=== PATIENT | male | born 1990 | race Caucasian/White ===

== ENCOUNTER 2017-12-19 03:01 | Emergency (ER) | payer OTHER ==
[~2017-12-19] VITALS: Ht 177.8 cm; Wt 113.0 kg
[~2017-12-19 03:01] MED LIST: FEXO-101; KETOROLAC TROMETHAMINE 30 MG/ML VIAL IV STA; ONDANSETRON INJ 2 MG/ML 2 ML VIAL IV STA; PARO1TAB27 PO; SODIUM CHLORIDE 0.9% 1000ML 1,000 ML IV STA
[2017-12-19 03:21] LABS: BASO % 0.2 %; BASO ABS # 0.02 K/uL (0-0.2); EOS % 0.7 %; EOS ABS # 0.07 K/uL (0-0.5); HEMATOCRIT 46.3 % (42-52); HEMOGLOBIN 16.3 g/dL (14.0-18.0); IG# 0.02 K/uL (0.00-0.02); LYMPH % 35.5 %; LYMPH ABS # 3.48 K/uL (1.2-3.4); MEAN CELL VOLUME 89.6 fL (80-100); MEAN CORPUSCULAR HEMOGLOBIN 31.5 pg (25-34); MEAN CORPUSCULAR HGB CONC 35.2 g/dl (32-36); MEAN PLATELET VOLUME 10.1 fL (7.4-10.4); MONO % 5.7 %; MONO ABS # 0.56 K/uL (0.11-0.59); NEUT % 57.7 %; NEUT ABS # 5.66 K/uL (1.4-6.5); PLATELET COUNT 228 K/uL (130-400); RED CELL DISTRIBUTION WIDTH CV 12.3 % (11.5-14.5); RED CELL DISTRIBUTION WIDTH SD 39.8 fL (36.4-46.3); WHITE BLOOD COUNT 9.81 K/uL (4.8-10.8)
[2017-12-19 03:29] VITALS: TEMP 36.8; O2SAT 96; Ht 177.8 cm; Wt 113.0 kg
[2017-12-19] MEDS ORDERED: ONDANSETRON INJ 2 MG/ML 2 ML VIAL IV STA (03:38)
[2017-12-19] MEDS ORDERED: MoRPHine SULFATE 4 MG/ML 1 ML CARP\\VIAL IV STA ×2 (03:38→04:32)
[2017-12-19 03:42] LABS: ALBUMIN 4.5 gm/dl (3.4-5.0); ALT/SGPT 57 U/L (12-78); AST/SGOT 20 U/L (15-37); BLOOD UREA NITROGEN 12 mg/dl (7-18); CALCIUM 9.4 mg/dl (8.5-10.1); CARBON DIOXIDE 25 mmol/L (21-32); CREATININE 1.24 mg/dl (0.60-1.40); GLUCOSE 108 mg/dl (70-99); LIPASE 73 U/L (73-393); POTASSIUM 3.6 mmol/L (3.5-5.1); SODIUM 138 mmol/L (136-145)
[2017-12-19 03:44] LABS: ALKALINE PHOSPHATASE 62 U/L (45-117); TOTAL PROTEIN 8.2 gm/dl (6.4-8.2)
[2017-12-19] MEDS ORDERED: RANITIDINE HCL 150 MG TAB PO STA (04:45)
[2017-12-19] MEDS ORDERED: RANITIDINE HCL 50 MG/100 ML D5W IV STA (04:45)
[2017-12-19] MEDS ORDERED: ALUMINUM/MAGNESIUM SUSP 30 ML UDC PO STA (04:45)
[2017-12-19] MEDS ORDERED: LIDOCAINE HCL 2% VISC SOLN 20 ML UDC PO STA (04:45)
[2017-12-19] MEDS ORDERED: OXYCODONE IR HOME PACK PO ONE (05:00)
[2017-12-19] MEDS ORDERED: ONDANSETRON HOME PACK 4MG OD TAB PO ONE (05:00)
--- NOTE | 2017-12-19 05:00 | EMERGENCY ROOM VISIT NOTE ---
History First contact with patient: 02:54 Chief Complaint: ABDOMINAL PAIN Stated Complaint: vomiting History of Present Illness The patient is a 27 year old male who presents to the Emergency Room with complaints of nausea, vomiting, right upper quadrant and flank pain for the past several hours described as aching, ranging in severity 6 out of 10 worse with palpation and better with rest. It does not radiate. Patient denies chest pain, dyspnea, fever, chills, diarrhea, testicular pain, penile pain, urinary problems. No history of similar symptoms in the past. Review of Systems An 10 system review of systems was completed with positives and pertinent negatives listed in the HPI. Past Medical/Surgical History None Social History Smoking Status: Never Smoker Smokeless Tobacco Use: No Alcohol Use: occasionally Drug Use: none Marital Status: in relationship Housing Status: lives with significant other Occupation Status: employed Current/Historical Medications No Active Prescriptions or Reported Meds Physical Exam Vital Signs Date Time Temp Pulse Resp B/P (MAP) Pulse Ox O2 Delivery O2 Flow Rate FiO2 12/19/17 04:10 93 18 158/97 97 Room Air 12/19/17 03:29 96 Room Air 12/19/17 03:29 36.8 97 19 135/94 94 Room Air Physical Exam VITALS: Vitals are noted on the nurse's note and reviewed by myself. Vital signs hypertensive. GENERAL: Pleasant male, in no acute distress, nondiaphoretic, well-developed well-nourished. SKIN: The skin was without rashes, erythema, edema, or bruising. There is no tenting of the skin. Capillary reflex less than 2 seconds. HEAD: Normocephalic atraumatic. EARS: External auditory canals clear EYES: Pupils equal round and reactive to light and accommodation. Conjunctivae without injection, sclerae without icterus. Extraocular movements intact. NOSE: Patent, turbinates without inflammation or discharge. MOUTH: Mucous membranes moist. Pharynx without erythema or exudate. Uvula midline. Airway patent. Tongue does not deviate. NECK: Supple without nuchal rigidity. No lymphadenopathy. No thyromegaly. Cervical spine is nontender. No JVD. HEART: Regular rate and rhythm without murmurs gallops or rubs. LUNGS: Clear to auscultation bilaterally without wheezes, rales or rhonchi. No retractions or accessory muscle use. ABDOMEN: Positive bowel sounds x 4. Normal tympanic percussion. Soft, tender to palpation right upper quadrant, without masses or organomegaly. No guarding or rebound tenderness. No CVA tenderness MUSCULOSKELETAL: No muscle atrophy, erythema, or edema noted. NEURO: Patient was alert and oriented to person place and time. Normal sensation to light and sharp touch. No focal neurological deficits. Medical Decision & Procedures Laboratory Results 12/19/17 03:05 Red Blood Count 5.17, Mean Corpuscular Volume 89.6, Mean Corpuscular Hemoglobin 31.5, Mean Corpuscular Hemoglobin Concent 35.2, Mean Platelet Volume 10.1, Neutrophils (%) (Auto) 57.7, Lymphocytes (%) (Auto) 35.5, Monocytes (%) (Auto) 5.7, Eosinophils (%) (Auto) 0.7, Basophils (%) (Auto) 0.2, Neutrophils # (Auto) 5.66, Lymphocytes # (Auto) 3.48, Monocytes # (Auto) 0.56, Eosinophils # (Auto) 0.07, Basophils # (Auto) 0.02 12/19/17 03:05 Test 12/19/17 03:05 White Blood Count 9.81 K/uL (4.8-10.8) Red Blood Count 5.17 M/uL (4.7-6.1) Hemoglobin 16.3 g/dL (14.0-18.0) Hematocrit 46.3 % (42-52) Mean Corpuscular Volume 89.6 fL (80-100) Mean Corpuscular Hemoglobin 31.5 pg (25-34) Mean Corpuscular Hemoglobin Concent 35.2 g/dl (32-36) Platelet Count 228 K/uL (130-400) Mean Platelet Volume 10.1 fL (7.4-10.4) Neutrophils (%) (Auto) 57.7 % Lymphocytes (%) (Auto) 35.5 % Monocytes (%) (Auto) 5.7 % Eosinophils (%) (Auto) 0.7 % Basophils (%) (Auto) 0.2 % Neutrophils # (Auto) 5.66 K/uL (1.4-6.5) Lymphocytes # (Auto) 3.48 K/uL (1.2-3.4) Monocytes # (Auto) 0.56 K/uL (0.11-0.59) Eosinophils # (Auto) 0.07 K/uL (0-0.5) Basophils # (Auto) 0.02 K/uL (0-0.2) RDW Standard Deviation 39.8 fL (36.4-46.3) RDW Coefficient of Variation 12.3 % (11.5-14.5) Immature Granulocyte % (Auto) 0.2 % Immature Granulocyte # (Auto) 0.02 K/uL (0.00-0.02) Urine Color YELLOW Urine Appearance CLEAR (CLEAR) Urine pH 5.0 (4.5-7.5) Urine Specific [place] 1.029 (1.000-1.030) Urine Protein TRACE (NEG) Urine Glucose (UA) NEG (NEG) Urine Ketones NEG (NEG) Urine Occult Blood TRACE (NEG) Urine Nitrite NEG (NEG) Urine Bilirubin NEG (NEG) Urine Urobilinogen NEG (NEG) Urine Leukocyte Esterase NEG (NEG) Urine WBC (Auto) 1-5 /hpf (0-5) Urine RBC (Auto) 0-4 /hpf (0-4) Urine Hyaline Casts (Auto) 1-5 /lpf (0-5) Urine Epithelial Cells (Auto) 0-5 /lpf (0-5) Urine Bacteria (Auto) NEG (NEG) Anion Gap 6.0 mmol/L (3-11) Estimated GFR () 91.8 Estimated GFR (Non- 79.2 BUN/Creatinine Ratio 9.5 (10-20) Calcium Level 9.4 mg/dl (8.5-10.1) Total Bilirubin 0.6 mg/dl (0.2-1) Direct Bilirubin < 0.1 mg/dl (0-0.2) Aspartate Amino Transf (AST/SGOT) 20 U/L (15-37) Alanine Aminotransferase (ALT/SGPT) 57 U/L (12-78) Alkaline Phosphatase 62 U/L (45-117) Total Protein 8.2 gm/dl (6.4-8.2) Albumin 4.5 gm/dl (3.4-5.0) Lipase 73 U/L (73-393) Medications Administered Medications (Trade) Dose Ordered Sig/Marina Route Start Time Stop Time Status Last Admin Dose Admin Ketorolac Tromethamine (Toradol Inj) 10 mg NOW STAT IV 12/19/17 02:55 12/19/17 02:58 DC 12/19/17 03:22 10 MG Ondansetron HCl (Zofran Inj) 4 mg NOW STAT IV 12/19/17 02:55 12/19/17 02:58 DC 12/19/17 03:21 4 MG Sodium Chloride 1,000 ml @ 999 mls/hr Q1H1M STAT IV 12/19/17 02:55 12/19/17 03:55 DC 12/19/17 03:21 999 MLS/HR Morphine Sulfate (MoRPHine SULFATE INJ) 4 mg NOW STAT IV 12/19/17 03:38 12/19/17 03:39 DC 12/19/17 03:45 4 MG Ondansetron HCl (Zofran Inj) 4 mg NOW STAT IV 12/19/17 03:38 12/19/17 03:39 DC 12/19/17 03:44 4 MG ED Course Prior records/ancillary studies reviewed. Triage Nursing notes reviewed. The patient's history was concerning for abdominal pain. Differential diagnosis: Etiologies such as appendicitis, diverticulitis, PUD, biliary pathology, UTI, pancreatitis, obstruction, mesenteric ischemia, aortic pathology, infections, inflammatory bowel disease, renal colic, as well as others were entertained. Physical examination findings: As above. ER treatment provided: Toradol, Zofran, IV fluids On reassessment the patient felt better. Diagnostics interpreted by me: The labs revealed no worrisome leukocytosis. Negative urine Imaging studies: US RUQ: Gallbladder sludge. No significant gallbladder wall thickening. Common bile duct within normal limits. Echogenic liver, can be seen with fatty infiltration. No right hydronephrosis. Pancreas not well visualized. Radiologist: Xin Yan M.D. Consultation: A consultation was placed with the surgeon, Dr. Ball. The case was discussed and diagnostics were reviewed. She states have the patient call Thursday morning to the clinic and they will evaluate the patient. Exam and history seem consistent with biliary colic. Patient was felt better to be medicated as above. He did not have acute abdomen on exam. He is tolerating fluids. He requested to leave. Patient was advised to do a low-fat healthy diet and to take medications as directed. He was advised to follow-up with surgery on Thursday or the family care doctor for further workup on the gallbladder. Is advised to return to the ER meaty for abdominal pain, fevers, vomiting, worsening signs or symptoms or as needed. Patient was offered admission and declined. I felt this is reasonable. He was feeling better. By the evaluation outlined above emergent etiologies such as appendicitis, diverticulitis, PUD, UTI, pancreatitis, obstruction, mesenteric ischemia, aortic pathology, infections, inflammatory bowel disease, renal colic, as well as others were deemed relatively unlikely. The pt informed about the findings as listed above. All questions were answered and pleased with the treatment. Return instructions were outlined and the patient was discharged in stable condition. Outpatient prescription management: Ender Bustamante Referral: The patient was referred back to their primary care physician or surgery for follow-up in 2 to 3 days for a recheck of the current condition. Case reviewed with my attending The chart was completed utilizing [employer] Speech voice recognition software. Grammatical errors, random word insertions, pronoun errors, and incomplete sentences are an occassional consequence of this system due to software limitations, ambient noise, and hardware issues. Any formal questions or concerns about the content, text, or information contained within the body of this dictation should be directly addressed to the physician licensed sales assistant for clarification. Medical Decision As above Medication Reconcilliation Current Medication List: was personally reviewed by me Blood Pressure Screening Patient's blood pressure: Elevated blood pressure Blood pressure disposition: Elevated BP felt to be situational Impression Primary Impression: Biliary colic Departure Information Dispostion Home / Self-Care Condition GOOD Prescriptions No Active Prescriptions or Reported Meds Referrals No Doctor, Assigned (PCP) Patient Instructions My [facility] Additional Instructions Avoid fatty foods. Recommend bland diet. Recommend outpatient HIDA scan for further evaluation on your gallbladder. Try Maalox or Zantac for symptoms for reflux. Avoid large meals. Avoid acidic foods. Rest and drink plenty of fluids as tolerated. Continue current medications. Avoid strenuous activities and anything that worsens your pain. Resume normal activities once your symptoms resolve. Return to the ER immediately for worsening or persistent chest pain, abdominal pain, black or blood in your stools, vomiting, fevers, chest pains, difficulty breathing, worsening of your condition, or as needed. Follow up with your primary physician in 2-3 days for a recheck of your current condition. If you like further evaluation and treatment on your gallbladder, Dr. Ball's group will evaluate Thursday. Call [phone] and ask for Brandie. They will schedule you for an appointment.
[2017-12-19 05:17] VITALS: BP 151/81; PULSE 94; O2SAT 96
--- NOTE | 2017-12-19 08:59 | DIAGNOSTIC IMAGING REPORT ---
GALLBLADDER-ABD LIMITED CLINICAL HISTORY: 27 years-old Male presenting with RUQ/FLANK PAIN; ?GB/STONE. TECHNIQUE: Real-time grayscale and limited color Doppler ultrasound imaging of the abdomen limited to the right upper quadrant was performed. COMPARISON: None. FINDINGS: Pancreas: Visualized portions of the pancreatic head and body normal. Liver: Mildly hyperechogenic parenchyma, although the right hemidiaphragm remains visible, likely indicating mild steatosis. The liver measures 17.3 cm in maximal sagittal dimension. No sonographic evidence of hepatic mass. Main portal vein patent with normal directional flow. Biliary: No intrahepatic biliary ductal dilatation. Common bile duct measures up to 3 mm in diameter. Gallbladder: Gallbladder sludge. No evidence of gallstones, gallbladder wall thickening, gallbladder distention, or pericholecystic fluid or inflammatory change. Right kidney: Normal in appearance without evidence of hydronephrosis. Ascites: None. Other: None. IMPRESSION: 1. Gallbladder sludge. No cholelithiasis or biliary ductal dilatation. 2. Hepatic steatosis. Correlate with liver function tests to exclude steatohepatitis as a cause for abdominal pain. Electronically signed by: Haroon Maurer M.D. 12/19/2017 8:58 AM Dictated Date/Time: 12/19/2017 8:56 AM
== END 2017-12-19 05:19 | disposition home or self-care (01) ==
LOC: EDUNIT# 03:01 → C.EDA 03:04
DX: K80.50 Calculus of bile duct without cholangitis or cholecystitis without obstruction (principal); R10.11 Right upper quadrant pain; R11.2 Nausea with vomiting, unspecified; K76.0 Fatty (change of) liver, not elsewhere classified